=== PATIENT | female | born 1995 | race Caucasian/White ===

== ENCOUNTER 2018-11-03 06:28 | Emergency (ER) | payer SELFPAY ==
[~2018-11-03] VITALS: Ht 152.4 cm; Wt 59.0 kg
[2018-11-03 06:44] VITALS: BP_SYST 112
[2018-11-03 07:16] VITALS: BP_SYST 112
== END 2018-11-03 07:16 ==
LOC: SED 06:28
DX: S80.11XA Contusion of right lower leg, initial encounter (principal); S50.811A Abrasion of right forearm, initial encounter; V43.52XA Car driver injured in collision with other type car in traffic accident, initial encounter; Y93.89 Activity, other specified; Y92.410 Unspecified street and highway as the place of occurrence of the external cause; Y99.8 Other external cause status
CPT/HCPCS: 99283